=== PATIENT | male | born 1975 | race Caucasian/White ===

== ENCOUNTER 2021-09-09 11:45 | Outpatient (REF) | payer BC, SELFPAY ==
[2021-09-09 11:56] LABS: MANUAL DIFF FLAG NO
[2021-09-09 12:37] LABS: Basophils Percent Auto 0.4 % (0-2); Eosinophils Absolute Auto 0.3 X10*3/uL (0.0-0.4); Eosinophils Percent Auto 6.1 % (0-4); Hematocrit 47.7 % (42.0-52.0); Hemoglobin 15.9 g/dl (14.0-18.0); Imm Gran Abs Auto 0.01 X10*3/uL (0.00-0.03); Imm Gran Pct Auto 0.2 % (0.0-0.4); Lymphocytes Absolute Auto 1.2 X10*3/uL (1.2-4.9); Lymphocytes Percent Auto 26.5 % (20-40); Mean Corpuscular HGB Conc 33.3 g/dl (31.0-36.0); Mean Corpuscular Hemoglobin 31.2 pg (27.0-33.0); Mean Corpuscular Volume 93.7 fL (80.0-98.0); Mean Platelet Volume 10.8 fL (9.4-12.4); Monocytes Absolute Auto 0.5 X10*3/uL (0.1-1.2); Monocytes Percent Auto 10.4 % (2-11); Neutrophils Absolute Auto 2.6 x10*3/uL (2.0-8.3); Neutrophils Percent Auto 56.4 % (45-73); Platelet Count 176 X10*3/uL (160-400); Red Blood Count 5.09 X10*6/uL (4.60-5.80); Red Cell Distribution Width 12.9 % (11.0-16.0); White Blood Count 4.6 X10*3/uL (4.8-10.8)
[2021-09-09 13:08] LABS: C Reactive Protein 0.08 mg/dL (< or = 0.50); Iron 130 mcg/dL (45-160); Percent Iron Saturation 40 % (15-50); Total Iron Binding Capacity 328 mcg/dL (228-428); Unsaturated Iron Binding 198 ug/dL
[2021-09-09 13:31] LABS: TSH reflex Free T4 1.49 uIU/mL (0.32-4.0)
[2021-09-09 13:38] LABS: Erythrocyte Sedimentation Rate 1 MM/HR (0-15)
== END 2021-09-09 11:46 | disposition home or self-care (01) ==
LOC: HO.LAB 11:45
PROVIDERS: PCP Pediatrics; Visit Provider Internal Medicine Rheumatology
DX: R53.83 Other fatigue (principal); M79.7 Fibromyalgia
CPT/HCPCS: 36415; 83540; 84443; 85025; 85652; 86140